=== PATIENT | male | born 1995 | race Caucasian/White ===

== ENCOUNTER 2023-01-17 13:18 | Emergency (ER) | payer MEDICAID ==
[~2023-01-17] VITALS: Ht 177 cm; Wt 83.0 kg
[2023-01-17 13:27] VITALS: BP 121/72
--- NOTE | 2023-01-17 13:51 | ED General ---
General Chief Complaint: Fever-Adult/Adol Stated Complaint: VOMITING | DEHYDRATED Nursing Triage Note: VOMITING STARTING THIS AM. PT IS ALSO RUNNING A FEVER WHICH HE DID NOT KNOW. Source of Information: Patient Exam Limitations: No Limitations (FERNANDO MACKENZIE) History of Present Illness Date Seen by Provider: Jan 17, 2023 Time Seen by Provider: 13:48 Initial Comments Patient is a 27-year-old male who presents the ED with staff from [facility] for fever, not feeling well. Patient was shaky with chills last night. Vomited 3-4 times a day nonbilious without hematemesis. Complaining of mid to lower abdominal pain described as sharp and constant. He reports pain with urination and frequent urination. Patient staff states they are concerned for heat exhaustion versus UTI. Has been eating and drinking prior. [place] warm. He was febrile on arrival. Denies history of coronary artery disease, hypertension, diabetes, COPD, asthma. Patient is otherwise healthy. Patient denies sore throat, ear pain, headache, visual changes, ear pain, back pain, cough. (FERNANDO MACKENZIE) Allergies and Home Medications Allergies Coded Allergies: No Known Drug Allergies (Unverified , 01/17/23) Patient Home Medication List Home Medication List Reviewed: Yes (FERNANDO MACKENZIE) Cephalexin (Cephalexin) 500 Mg Tablet, 500 MG PO BID Prescribed by: ALETHA GARNER on 01/17/23 7435 Review of Systems Review of Systems Constitutional: chills; No diaphoresis; fever, malaise, weakness EENTM: No hearing loss, No ear pain, No blurred vision Respiratory: No cough, No dyspnea on exertion Cardiovascular: No chest pain Gastrointestinal: abdominal pain; No diarrhea; nausea, vomiting Genitourinary: No decreased output; dysuria, frequency Musculoskeletal: No back pain, No joint pain Skin: No change in color, No change in hair/nails (FERNANDO MACKENZIE) All Other Systems Reviewed Negative Unless Noted: Yes (FERNANDO MACKENZIE) Past Ijjyotq-Cqphah-Hnzkth Hx Patient Social History Tobacco Use?: No Substance use?: No Alcohol Use?: No (FERNANDO MACKENZIE) Physical Exam Vital Signs Vital Signs - First Documented 01/17/23 13:27 Temp 39.4 Pulse 107 Resp 16 B/P (MAP) 121/72 (88) Pulse Ox 99 O2 Delivery Room Air (MARIELY CHUN MD) Vital Signs Capillary Refill : Less Than 3 Seconds (FERNANDO MACKENZIE) Height, Weight, BMI Height: '" Weight: lbs. oz. kg; 26.00 BMI Method: General Appearance: No Apparent Distress, WD/WN Eyes: Bilateral Eye Normal Inspection, Bilateral Eye PERRL, Bilateral Eye EOMI HEENT: PERRL/EOMI, TMs Normal, Normal ENT Inspection, Pharynx Normal Neck: Full Range of Motion, Normal Inspection, Non Tender, Supple Respiratory: Chest Non Tender, Lungs Clear, Normal Breath Sounds, No Accessory Muscle Use, No Respiratory Distress Cardiovascular: No Edema, No Gallop, No JVD, Tachycardia Gastrointestinal: Normal Bowel Sounds, No Organomegaly, No Pulsatile Mass, Tenderness (Suprapubic, right lower quadrant tenderness. Normal bowel sounds throughout. No rebound or guarding) Back: Normal Inspection, No CVA Tenderness, No Vertebral Tenderness Extremity: Normal Capillary Refill, Normal Inspection, Normal Range of Motion Neurologic/Psychiatric: Alert, Oriented x3, No Motor/Sensory Deficits, Normal Mood/Affect Skin: Normal Color, Warm/Dry (FERNANDO MACKENZIE) Focused Exam Lactate Level 01/17/23 14:00: Lactic Acid Level 0.91 (MARIELY CHUN MD) Lactic Acid Level Laboratory Tests Test 01/17/23 14:00 Lactic Acid Level 0.91 MMOL/L (0.50-2.00) (MARIELY CHUN MD) Progress/Results/Core Measures Suspected Sepsis SIRS Temperature: Pulse: 107 Respiratory Rate: 16 Laboratory Tests 01/17/23 14:00: White Blood Count 12.6H Blood Pressure 121 /72 Mean: 88 01/17/23 14:00: Lactic Acid Level 0.91 Laboratory Tests 01/17/23 14:00: Creatinine 1.07, INR Comment 1.1, Platelet Count 242, Total Bilirubin 1.6H (FERNANDO MACKENZIE) Results/Orders Lab Results Laboratory Tests Test 01/17/23 13:56 01/17/23 14:00 01/17/23 14:26 Range/Units Influenza Type A (RT-PCR) Not Detected Not Detecte Influenza Type B (RT-PCR) Not Detected Not Detecte SARS-CoV-2 RNA (RT-PCR) Not Detected Not Detecte White Blood Count 12.6 H 4.3-11.0 10^3/uL Red Blood Count 4.88 4.30-5.52 10^6/uL Hemoglobin 14.1 13.3-17.7 g/dL Hematocrit 42 40-54 % Mean Corpuscular Volume 86 80-99 fL Mean Corpuscular Hemoglobin 29 25-34 pg Mean Corpuscular Hemoglobin Concent 34 32-36 g/dL Red Cell Distribution Width 12.4 10.0-14.5 % Platelet Count 242 130-400 10^3/uL Mean Platelet Volume 9.1 9.0-12.2 fL Immature Granulocyte % (Auto) 0 % Neutrophils (%) (Auto) 90 H 42-75 % Lymphocytes (%) (Auto) 5 L 12-44 % Monocytes (%) (Auto) 5 0-12 % Eosinophils (%) (Auto) 0 0-10 % Basophils (%) (Auto) 0 0-10 % Neutrophils # (Auto) 11.3 H 1.8-7.8 10^3/uL Lymphocytes # (Auto) 0.6 L 1.0-4.0 10^3/uL Monocytes # (Auto) 0.6 0.0-1.0 10^3/uL Eosinophils # (Auto) 0.0 0.0-0.3 10^3/uL Basophils # (Auto) 0.0 0.0-0.1 10^3/uL Immature Granulocyte # (Auto) 0.0 0.0-0.1 10^3/uL Neutrophils % (Manual) 87 % Lymphocytes % (Manual) 8 % Monocytes % (Manual) 4 % Eosinophils % (Manual) 0 % Basophils % (Manual) 0 % Band Neutrophils 1 % Blood Morphology Comment NORMAL Prothrombin Time 14.7 12.2-14.7 SEC INR Comment 1.1 0.8-1.4 Activated Partial Thromboplast Time 36 H 24-35 SEC Sodium Level 137 135-145 MMOL/L Potassium Level 3.9 3.6-5.0 MMOL/L Chloride Level 103 98-107 MMOL/L Carbon Dioxide Level 24 21-32 MMOL/L Anion Gap 10 5-14 MMOL/L Blood Urea Nitrogen 10 7-18 MG/DL Creatinine 1.07 0.60-1.30 MG/DL Estimat Glomerular Filtration Rate 98 BUN/Creatinine Ratio 9 Glucose Level 111 H 70-105 MG/DL Lactic Acid Level 0.91 0.50-2.00 MMOL/L Calcium Level 9.3 8.5-10.1 MG/DL Corrected Calcium 9.1 8.5-10.1 MG/DL Total Bilirubin 1.6 H 0.1-1.0 MG/DL Aspartate Amino Transf (AST/SGOT) 28 5-34 U/L Alanine Aminotransferase (ALT/SGPT) 23 0-55 U/L Alkaline Phosphatase 79 40-136 U/L Total Protein 6.9 6.4-8.2 GM/DL Albumin 4.2 3.2-4.5 GM/DL Urine Color YELLOW Urine Clarity CLEAR Urine pH 6.5 5-9 Urine Specific [place] 1.015 L 1.016-1.022 Urine Protein NEGATIVE NEGATIVE Urine Glucose (UA) NEGATIVE NEGATIVE Urine Ketones 2+ H NEGATIVE Urine Nitrite NEGATIVE NEGATIVE Urine Bilirubin NEGATIVE NEGATIVE Urine Urobilinogen 1.0 < = 1.0 MG/DL Urine Leukocyte Esterase NEGATIVE NEGATIVE Urine RBC (Auto) NEGATIVE NEGATIVE Urine RBC RARE /HPF Urine WBC NONE /HPF Urine Squamous Epithelial Cells RARE /HPF Urine Crystals NONE /LPF Urine Bacteria NEGATIVE /HPF Urine Casts NONE /LPF Urine Mucus SMALL H /LPF Urine Culture Indicated NO (MARIELY CHUN MD) Medications Given in ED Current Medications Medications Dose Ordered Sig/Shey Route Start Time Stop Time Status Last Admin Dose Admin Acetaminophen 1,000 mg ONCE PRN PO 01/17/23 14:00 01/17/23 14:11 DC 01/17/23 14:10 1,000 MG Ceftriaxone Sodium 1000 mg/ Sodium Chloride 50 ml @ 100 mls/hr ONCE ONCE IV 01/17/23 14:00 01/17/23 14:29 DC 01/17/23 15:27 100 MLS/HR Ibuprofen 600 mg ONCE ONCE PO 01/17/23 15:45 01/17/23 15:46 DC 01/17/23 15:52 600 MG Iohexol 100 ml ONCE ONCE IV 01/17/23 15:00 01/17/23 15:01 DC 01/17/23 15:01 80 ML Sodium Chloride 100 ml ONCE ONCE IV 01/17/23 15:00 01/17/23 15:01 DC 01/17/23 15:01 80 ML (MARIELY CHUN MD) Vital Signs/I&O 01/17/23 01/17/23 13:27 15:52 Temp 39.4 38.5 Pulse 107 Resp 16 B/P (MAP) 121/72 (88) Pulse Ox 99 O2 Delivery Room Air (MARIELY CHUN MD) Vital Signs/I&O Capillary Refill : Less Than 3 Seconds (FERNANDO MACKENZIE) Blood Pressure Mean: 88 Departure Communication (PCP) Reviewed previous ER visits, H&P, lab testing. Differential diagnosis of UTI, appendicitis, viral syndrome. Febrile on arrival slightly tachycardic. Sepsis protocol was initiated. Blood cultures pending. Normal lactic acid. CBC 12.6. Chemistry grossly unremarkable. He received a liter of fluid with Tylenol and ibuprofen for the fever 39.4. Improvement of his temperature to 36.9. patient chest x-ray was negative for pneumonia. COVID influenza was negative. Urinalysis without strong evidence of infection. Suprapubic right lower quadrant tenderness. CT abdomen pelvis was ordered which was negative for appendicitis. Thickened gallbladder concern for cystitis. He does report d ysuria. Denies of any peritoneal pain, scrotum pain. Due to his fever and urinary symptoms and imaging results concerning for early UTI. Will discharge with Keflex. Not concern for STD. discussed continue Tylenol and ibuprofen at home. Recommend recheck with his PCP in 1 to 2 days. If increasing pain, fever vomiting not able to tolerate p.o. fluids to return back to ED for further evaluation. (FERNANDO MACKENZIE) Impression Primary Impression: Fever Additional Impression: Pain with urination Disposition: HOME, SELF-CARE Condition: Stable Departure-Patient Inst. Decision time for Depature: 16:08 (FERNANDO MACKENZIE) Referrals: SOMMER SCHAFFER MD (PCP/Family) Primary Care Physician Patient Instructions: Fever, Adult (DC) Add. Discharge Instructions: Recommend taking Keflex as prescribed for potential UTI with the dysuria and fever. Recommend ibuprofen every 8 hours 800 mg, Tylenol 650 mg to 1000 mg every 4-6 hours. If any worsening pain, fever, decrease oral intake to return back to ED All discharge instructions reviewed with patient and/or family. Voiced understanding. Scripts Cephalexin (Cephalexin) 500 Mg Tablet 500 MG PO BID for 10 Days, #20 TAB Prov: FERNANDO MACKENZIE 01/17/23 ATTENDING PHYSICIAN NOTE: I was physically present as attending physician in the emergency department during the care of this patient, but I was not directly involved in the decision making or delivery of care for this patient. (MARIELY CHUN MD) FERNANDO MACKENZIE Jan 17, 2023 13:51 MARIELY CHUN MD Jan 17, 2023 20:51
[2023-01-17] MEDS ORDERED: ACETAMINOPHEN 500 MG TAB (TYLENOL) PO PRN (14:00)
[2023-01-17] MEDS ORDERED: NS IV 1000 ML 1,000 ML IV SCH (14:00)
[2023-01-17] MEDS ORDERED: cefTRIAXone IV/IM 1,000 MG in NS (IVPB) 50 ML IV ONE (14:00)
--- NOTE | 2023-01-17 14:16 | Diagnostic Imaging Report ---
INDICATION: Vomiting and fever Portable chest 1:56 PM Heart and mediastinum are normal. Lungs are clear. There are no effusions or pneumothoraces. IMPRESSION: Negative chest. Dictated by: Dictated on workstation # [id number]
[2023-01-17 14:20] LABS: BASOPHILS % (AUTO) 0 % (0-10); EOSINOPHILS % (AUTO) 0 % (0-10); HEMATOCRIT 42 % (40-54); HEMOGLOBIN 14.1 g/dL (13.3-17.7); LYMPHOCYTES # (AUTO) 0.6 10^3/uL (1.0-4.0); LYMPHOCYTES % (AUTO) 5 % (12-44); MEAN CORPUSCULAR HEMOGLOBIN 29 pg (25-34); MEAN CORPUSCULAR HGB CONC 34 g/dL (32-36); MEAN CORPUSCULAR VOLUME 86 fL (80-99); MEAN PLATELET VOLUME 9.1 fL (9.0-12.2); MONOCYTES # (AUTO) 0.6 10^3/uL (0.0-1.0); MONOCYTES % (AUTO) 5 % (0-12); NEUTROPHILS # (AUTO) 11.3 10^3/uL (1.8-7.8); NEUTROPHILS % (AUTO) 90 % (42-75); PLATELET COUNT 242 10^3/uL (130-400); WHITE BLOOD COUNT 12.6 10^3/uL (4.3-11.0)
[2023-01-17 14:32] LABS: INR 1.1 (0.8-1.4); PROTHROMBIN TIME PATIENT 14.7 SEC (12.2-14.7)
[2023-01-17 14:34] LABS: ALBUMIN 4.2 GM/DL (3.2-4.5); BAND NEUTROPHILS 1 %; BASOPHILS % (MANUAL) 0 %; EOSINOPHILS % (MANUAL) 0 %; LYMPHOCYTES % (MANUAL) 8 %; MONOCYTES % (MANUAL) 4 %; NEUTROPHILS % (MANUAL) 87 %; POTASSIUM 3.9 MMOL/L (3.6-5.0); RBC MORPH NORMAL
[2023-01-17 14:36] LABS: CALCIUM 9.3 MG/DL (8.5-10.1)
[2023-01-17 14:37] LABS: TOTAL PROTEIN 6.9 GM/DL (6.4-8.2)
[2023-01-17 14:39] LABS: BILIRUBIN,TOTAL 1.6 MG/DL (0.1-1.0)
[2023-01-17 14:40] LABS: CREATININE SERUM 1.07 MG/DL (0.60-1.30)
[2023-01-17 14:55] LABS: BILIRUBIN,URINE NEGATIVE (NEGATIVE); CLARITY,URINE CLEAR; COLOR,URINE YELLOW; GLUCOSE, URINE (UA) NEGATIVE (NEGATIVE); KETONES,URINE 2+ (NEGATIVE); LEUKOCYTE ESTERASE ,URINE NEGATIVE (NEGATIVE); NITRITE,URINE NEGATIVE (NEGATIVE); PH,URINE 6.5 (5-9); PROTEIN,URINE NEGATIVE (NEGATIVE)
[2023-01-17 14:56] LABS: BACTERIA,URINE NEGATIVE /HPF; RBC,URINE RARE /HPF; SQUAMOUS EPITHELIAL CELL,UR RARE /HPF
[2023-01-17] MEDS ORDERED: IOHEXOL 350 MG/ML 100 ML (OMNIPAQUE 350) VIAL IV ONE (15:00)
[2023-01-17] MEDS ORDERED: HOLD METFORMIN - RECEIVED CONTRAST 20 ML VIAL IV SCH (15:00)
[2023-01-17] MEDS ORDERED: NS 100 ML (IVPB) BAG IV ONE (15:00)
--- NOTE | 2023-01-17 15:20 | Diagnostic Imaging Report ---
EXAMINATION: CT abdomen and pelvis with intravenous contrast. TECHNIQUE: Multiple contiguous axial images were obtained through the abdomen and pelvis after the uneventful administration of intravenous contrast. All CT scans use one or more of the following dose optimizing techniques: automated exposure control, MA and/or KvP adjustment based on patient size and exam type or iterative reconstruction. HISTORY: Right lower quadrant pain. COMPARISON: None available. FINDINGS: Limited views of the lower thorax are unremarkable. The liver is normal without focal lesion. There is no biliary ductal dilation. Gallbladder is normal. Pancreas is normal. Spleen is normal. Adrenal glands are normal. The kidneys are normal. There is no hydronephrosis. Urinary bladder is mildly thick walled. Bowel is normal in caliber without obstruction or inflammation. The appendix is normal. No free fluid or air. No abdominal or pelvic lymphadenopathy. Aorta is normal in caliber without aneurysm. There are no suspicious osseous lesions. IMPRESSION: 1. Normal appendix. 2. Thick-walled urinary bladder, correlate for cystitis. Dictated by: Dictated on workstation # [id number]
[2023-01-17] MEDS ORDERED: IBUPROFEN 600 MG (MOTRIN) TAB PO ONE (15:45)
[2023-01-17] MEDS ORDERED: CEPH500T PO (16:09)
== END 2023-01-17 16:16 | disposition home or self-care (01) ==
LOC: EDUNIT# 13:18 → ER 13:21
DX: R50.9 Fever, unspecified (principal); R30.0 Dysuria; R10.31 Right lower quadrant pain; Z20.822 Contact with and (suspected) exposure to COVID-19
CPT/HCPCS: 36415; 71045; 74177; 80053; 81000; 83605; 85007; 85027; 85610; 85730; 87040; 87088; 87636